=== PATIENT | female | born 1975 | race Caucasian/White ===

== ENCOUNTER 2016-07-29 21:06 | Emergency (ER) | payer OTHER ==
[2016-07-29 21:38] VITALS: BP 121/78; PULSE 92; RESP 18; TEMP 98; O2SAT 100
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
== END 2016-07-29 23:49 | disposition home or self-care (01) ==
LOC: C.ER 21:06
DX: S16.1XXA Strain of muscle, fascia and tendon at neck level, initial encounter (principal); V49.50XA Passenger injured in collision with unspecified motor vehicles in traffic accident, initial encounter

== ENCOUNTER 2016-08-01 15:14 | Emergency (ER) | payer OTHER ==
[2016-08-01 15:21] VITALS: BMI 26.9
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
[2016-08-01 17:03] VITALS: BP 113/80; PULSE 18; RESP 20; TEMP 98.6
[2016-08-01 17:53] VITALS: O2SAT 100
== END 2016-08-01 17:04 | disposition home or self-care (01) ==
LOC: C.ER 15:14
DX: S16.1XXA Strain of muscle, fascia and tendon at neck level, initial encounter (principal); S80.02XA Contusion of left knee, initial encounter; S50.02XA Contusion of left elbow, initial encounter; V43.52XA Car driver injured in collision with other type car in traffic accident, initial encounter; Y92.410 Unspecified street and highway as the place of occurrence of the external cause